=== PATIENT | female | born 1990 | race Caucasian/White ===

== ENCOUNTER 2017-03-26 20:36 | Inpatient (IN) | payer OTHER ==
[~2017-03-26] VITALS: Ht 162.6 cm; Wt 56.8 kg
[~2017-03-26 20:36] MED LIST: AMOX250C3 PO; PRENTAB55 PO
[2017-03-26 20:55] VITALS: BP 133/61
[2017-03-26] MEDS ORDERED: OXYTOCIN 30 UNITS IN 0.9% NaCl 500ML IV BAG (J2590) As Ordered ONE (21:05)
[2017-03-26 21:17] LABS: MEAN CORPUSCULAR HEMOGLOBIN 31.2 pg (27.0-33.0); MEAN CORPUSCULAR VOLUME 91.9 fl (80.0-96.0); PLATELET COUNT, AUTOMATED 310 10^3/uL (150-450); RED CELL DISTRIBUTION WIDTH 12.4 % (11.5-14.5); WHITE BLOOD COUNT 13.8 10^3/uL (4.0-10.0)
--- NOTE | 2017-03-26 21:25 | HPEPDOC ---
Obstetrical History & Physical General Date of Admission Mar 26, 2017 at 20:58 History of Present Illness 26 y/o at 38+5 with reg ctx's. SROM while on the bed just now, clr. Pos FM. Some VB/show noted. Cx is /. Prior h/o in 2014 for breech. Op rpt reviewed and confirms low tverse uterine incision. As is in advanced labor and is a good candidate, I rec TOLAC. She agrees. Risks of <1% uterine rupture d/w pt. 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 Past Medical History Medical History denies Surgical History: section Family History Significant Family History: No pertinent family hx Social History Marital Status: Family situation: Spouse/partner home Psychosocial History: No pertinent psych hx * Smoker: non-smoker Alcohol: Denies Drugs: denies Abuse Violence Screening Have you been hit/kicked/slapp: No Have you been sexually assault: No Imunizations Tdap status: current Allergies Coded Allergies: No Known Allergies (Unverified , 03/23/17) Medications Scheduled Amoxicillin (Amoxicillin) 250 Mg Cap, 250 MG PO DAILY Multivitamins/ ( 19) 1 Tab Tab, 1 TAB PO DAILY Physical Examination Physical Examination GENERAL: Alert and oriented times three. BREAST: . ABDOMEN: Gravid and non-tender to touch. FETUS: Is vertex (VTX) by sterile vaginal examination (SVE), /, EFW 3000 EXTREMITIES: No edema. Vital Signs/I&O Vital Signs Date Time Temp Pulse Resp B/P (MAP) Pulse Ox O2 Delivery O2 Flow Rate FiO2 03/26/17 20:55 97.8 75 133/61 (85) Laboratory Data [facility] Laboratory Tests 2 03/26/17 21:08: Serology Scanned Report Hepatitis B Testing 03/26/17 21:10: Urine Culture: No Growth Pertinent Laboratoy Data Blood Type: A+ RBC Antibody Screen: Negative HIV: Negative Hepatitis B: Negative Hepatitis C: Unknown Rapid Plasma Reagin: Nonreactive Rubella: Immune Varicella: Nonreactive Chlamydia/Gonorrhea: Negative Group B Streptococcus: Unknown Quad Screen Test: Declined Cystic Fibrosis: Declined Glucose Tolerance Test: 89 Anatomy Ultrasound Placenta Location: Anterior Normal Anatomy: Yes Placenta Previa: No Assessment Variability: Moderate Accelerations: Positive Decelerations: Variable (intermittently) Tocometer Contractions: Yes Frequency: regular Duration: greater than 60 seconds Strength: palpated as strong Assessment/Plan Assessment Active labor. prior CD. Plan Admit and orient. 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 Diet: clrs Group B Streptococcus (GBS) unk, done at last visit, but I cannot leave to go to the office to check the result and the clerks do not have a copy. Labs and intravenous (IV) per unit protocol. Counseled on Pitocin and induction of labor (IOL) Anticipate C-S as appropriate. Sessions MD PEARCE,JOLLY Bradford MD Mar 26, 2017 21:25
[2017-03-26] MEDS ORDERED: TYLE500T78 PO (21:26)
[2017-03-26 23:10] VITALS: BP 139/79
[2017-03-26 23:30] VITALS: BP 129/73
[2017-03-26] MEDS ORDERED: OXYTOCIN DRIP 30 UNITS in APPROPRIATE DILUENT 1 EA IV SCH (23:31)
--- NOTE | 2017-03-26 23:42 | DNPDOC ---
[facility] Delivery Note Delivery Note DATE OF DELIVERY: [id number] @[id number] PREDELIVERY DIAGNOSIS: 38 5/7 weeks' gestation and labor. POST DELIVERY DIAGNOSIS: Delivered. 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 FINDINGS: 8 pound 5 ounce male , Score 9/9, nuchal cord times 1 DELIVERY SUMMARY: Fair effort. Called to room, . No delay of the vtx or right ant shoulder after the perineum split. Nuchal cord too tight to reduce , slipped over the shoulder, tight on the abd/leg after delivery. To abd, in good shape. Cord C/C by FOB. Cord blood. Placenta intact. 2nd degr ML lac noted. Repaired with 3-0 vicryl in standard fashion, good cosmesis/hemostasis. Rachana PEARCE,JOLLY Bradford MD Mar 26, 2017 23:42
[2017-03-26] MEDS ORDERED: ACETAMINOPHEN TAB 650MG DOSE (2X325MG) PO PRN (23:45)
[2017-03-26] MEDS ORDERED: METOCLOPRAMIDE INJ 10MG/2ML VIAL (J2765) IV PRN (23:45)
[2017-03-26] MEDS ORDERED: MEASLES,MUMPS,RUBELLA VACCINE INJ (MMR-II) (90707) SC SCH (23:45)
[2017-03-26] MEDS ORDERED: RHOGAM 300 MCG (1500 IU) INJ (J2790) IM SCH (23:45)
[2017-03-26] MEDS ORDERED: DIBUCAINE 1% OINTMENT 30GM TOP PRN (23:45)
[2017-03-26 23:51] VITALS: BP 122/72
[2017-03-26] MEDS: IBUPROFEN 800 MG TAB PO PRN (23:52)
[2017-03-26 23:56] VITALS: BP 123/71
[2017-03-27] VITALS (7 sets, daily range): BP systolic 111–127; BP diastolic 58–73
[2017-03-27] MEDS ORDERED: LIDOCAINE 1% MDV INJ 50 ML VIAL INFIL ONE
[2017-03-27] MEDS: DOCUSATE SODIUM 100 MG CAP PO SCH ×3 (02:11→21:00)
--- NOTE | 2017-03-27 07:53 | IPNPDOC ---
Text Note Date of Service The patient was seen on 03/27/17. NOTE PPD1 prog note States feeling well, no complaints. No heavy VB. Pain controlled. Voiding, ambulatory. Bonding well and feeding well. VSSAF CTAB RRR Ut at U-2, firm Ext no CCE a/p: Doing well. routine pp care. Likely d/c tomorrow. Sessions Shamika GALE, I+O VSShamika I+O Laboratory Tests 03/26/17 21:10 Red Blood Count 3.97 L, Mean Corpuscular Volume 91.9, Mean Corpuscular Hemoglobin 31.2, Mean Corpuscular Hemoglobin Concent 34.0, Red Cell Distribution Width 12.4 Vital Signs Date Time Temp Pulse Resp B/P (MAP) Pulse Ox O2 Delivery O2 Flow Rate FiO2 03/27/17 06:10 98.7 90 18 116/58 (77) Room Air I&O- Last 24 Hours up to 6 AM 03/28/17 06:00 Output Total 100 ml Balance -100 ml SESSIONS,JOLLY Bradford MD Mar 27, 2017 07:53
[2017-03-27] MEDS: IBUPROFEN 800 MG TAB PO PRN ×2 (08:23→16:31)
[2017-03-27] MEDS: PRENATAL VITAMINS CHEWABLE TABLET PO SCH (08:23)
[2017-03-28] MEDS: IBUPROFEN 800 MG TAB PO PRN (00:54)
[2017-03-28 06:10] VITALS: BP 108/66
--- NOTE | 2017-03-28 07:12 | DSES ---
DATE OF ADMISSION: 03/26/2017 DATE OF DISCHARGE: This lady is a 27-year-old, 2, now para 2 admitted with spontaneous rupture of membranes. She had a previous section for breech presentation and was going to attempt a trial of labor after (TOLAC). She got fully dilated and delivered a live male , 8 pounds 5 ounces, Apgars of 9 and 9 at one and five minutes respectfully, cord reduced times two. She had a second-degree tear repaired in the usual fashion. On discharge, we discussed phlebitis, cystitis, mastitis, endometritis and cellulitis; diet, exercise and pain management; perineal, breast and wound care. She was normocephalic, atraumatic. Neck with full range of motion. Pupils equal and reactive to light. Distal pulses symmetric. No evidence of deep vein thrombosis (DVT), pulmonary embolus (PE) or superficial phlebitis. Chest is clear bilaterally to bases. No wheezes or rhonchi. No costovertebral angle (CVA) tenderness. Uterus two below. Lochia is moderate. Four quadrant bowel sounds. Incision was clean and dry and had no defects. No rashes, lesions or pruritus. No arthralgia or myalgia. No complaints of cough, wheezes, shortness of breath or dyspnea on exertion. No chest pain. No bleeding. Neuro complete. No incontinency, urgency or frequency. No nausea, vomiting, diarrhea or constipation. She does not smoke, drink or abuse drugs. She is . Good support and there is no domestic violence. In summary, we have a term gestation, who delivered a live male for discharge. To followup in six weeks' time at [facility]. Discharge blood pressure 108/66, respirations 16, pulse 63, and temperature is 98.2. Her hemoglobin was 12.4, hematocrit 36.5 and platelets were 310. The patient has a followup in six weeks' time at [facility]. Discharged improved.
[2017-03-28] MEDS: DOCUSATE SODIUM 100 MG CAP PO SCH (07:45)
[2017-03-28] MEDS: PRENATAL VITAMINS CHEWABLE TABLET PO SCH (07:45)
[2017-03-28] MEDS ORDERED: INFLUENZA QUADRIVALENT PF VACCINE 0.5ML SYRINGE (90686) IM ONE (09:00)
[2017-03-28] MEDS ORDERED: COLA100C5 PO (09:02)
[2017-03-28] MEDS ORDERED: IBUP-1114 PO (09:02)
[2017-03-28] MEDS ORDERED: ACET50TA PO (09:02)
[2017-03-28] MEDS ORDERED: DIBU1OIN TOP (09:02)
== END 2017-03-28 09:20 | disposition home or self-care (01) | DRG 775 ==
LOC: M LDO 20:36 → M LDI 20:58 → M OBS 03-27 02:07
PROVIDERS: ADMIT Obstetrics & Gynecology; ATTEND Obstetrics & Gynecology
PROC: 10E0XZZ Delivery of Products of Conception, External Approach (ICD-10-PCS; principal; 2017-03-26)
PROC: 0KQM0ZZ Repair Perineum Muscle, Open Approach (ICD-10-PCS; 2017-03-26)
DX: O34.211 Maternal care for low transverse scar from previous cesarean delivery (principal); Z3A.38 38 weeks gestation of pregnancy; O69.2XX0 Labor and delivery complicated by other cord entanglement, with compression, not applicable or unspecified; O70.1 Second degree perineal laceration during delivery; Z37.0 Single live birth